=== PATIENT | male | born 1945 | race Caucasian/White ===

== ENCOUNTER 2020-05-08 10:54 | Emergency (ER) | payer MEDICARE, SELFPAY ==
[2020-05-08 11:04] VITALS: BP 131/82; PULSE 96; RESP 20; TEMP 36.7; O2SAT 95
--- NOTE | 2020-05-08 11:09 | ED.LOWEXIN ---
HPI - Extremity Injury (Lower) General Chief Complaint: Skin/Abscess/Foreign Body Stated Complaint: Lower extremity injury Time Seen by Provider: 05/08/20 11:09 Source: patient and RN notes reviewed History of Present Illness HPI Narrative: Patient is a 75-year-old male who presents the urgent care with complaints of a blister underneath the left great toe. Patient states that he stubbed the toe on causing a split in the left great toenail and a blister on the bottom of the toe. Patient states he is been lathering Neosporin but thinks he needs a skin cut off . Patient states he has a difficult time getting to the toe but has been keeping it clean. No other acute complaints. No acute distress noted. Patient aware of the plan of care. Related Data Home Medications Medication Instructions Recorded Confirmed ascorbic acid (vitamin C) 1,000 mg 1 gm PO DAILY 10/07/19 tablet aspirin 81 mg tablet,delayed 81 mg PO DAILY 10/07/19 release calcium carbonate 600 mg calcium 600 mg PO DAILY 10/07/19 (1,500 mg) tablet coenzyme Q10 100 mg capsule 100 mg PO DAILY 10/07/19 glucosamine HCl 1,500 mg tablet 4,500 mg PO DAILY tablet 10/07/19 multivitamin 1 tablet PO DAILY 10/07/19 omega-3 fatty acids 1,000 mg 1,000 mg PO BID 10/07/19 capsule insulin lispro 100 unit/mL 10 unit SUB-Q .qac ml 10/08/19 10/08/19 subcutaneous half-unit pen Allergies Allergy/AdvReac Type Severity Reaction Status Date / Time No Known Drug Allergies Allergy Unknown X Verified 05/08/20 11:28 Review of Systems Review of Systems: Narrative: CONSTITUTIONAL: Denies fever, chills, or sweats. EYES: Denies visual changes, redness, or discharge. ENT: Denies rhinorrhea, congestion, sore throat, or otalgia. CARDIOVASCULAR: Denies chest pain, palpitations, or edema. RESPIRATORY: Denies cough or dyspnea. GASTROINTESTINAL: Denies abdominal pain, nausea, vomiting, or diarrhea. GENITOURINARY: Denies dysuria or hematuria. SKIN: Reports of a blister to the left great toe MUSCULOSKELETAL: Denies back pain, joint pain, or myalgia. NEUROLOGIC: Denies headache, numbness, or weakness. All other systems reviewed are negative, except as documented in HPI. [facility] Past Medical History Medical History (Updated 05/08/20 @ 11:16 by HEATHER Lieberman) Type 2 diabetes mellitus with hyperglycemia Surgical History Surgical History (System 01/21/20 @ 11:05 by Blanca Perez) History of cholecystectomy History of parathyroidectomy Status post prostatectomy Social History Social History (Updated 02/13/20 @ 08:04 by Kayla Soto) Smoking status: Never smoker Second hand tobacco smoke exposure: No Alcohol intake: never Substance use: never Substance use type: does not use Gender identity (if verbalized by the patient): Male Comments At the time of my signature, I reviewed and agree with the nursing past medical, surgical, social, and family history. There is no relevant family history pertinent to the patient complaint. Exam Narrative: Exam Narrative: GENERAL: This is a well-nourished, well-developed patient, in no apparent distress. HEAD: normocephalic, atraumatic. EYES: PERRL. Sclera clear/white. Vision is grossly intact. EARS: External ears normal NOSE: External nose normal with no obvious nasal discharge, nares without redness, no rhinorrhea. THROAT: Mucous membranes moist NECK: Neck supple SKIN: 1 cm open blister noted to the bottom of the left great toe without surrounding erythema, left great toenail split at the tip without involving the nailbed NEURO: awake, alert, and oriented to person, place and time. There were no obvious focal neurologic abnormalities. EXTREMITIES: Left great toe without erythema, edema or ecchymosis. Positive strong left pedal pulse with capillary refill less than 2 seconds. Course Vital Signs Vital signs: Vital Signs Temperature 98.0 F 05/08/20 11:04 Pulse Rate 96 05/08/20 11:04
== END 2020-05-08 11:18 | disposition home or self-care (01) ==
PROVIDERS: Emergency Provider Nurse Practitioner Family; PCP Family Medicine
DX: S90.422A Blister (nonthermal), left great toe, initial encounter (principal); W22.8XXA Striking against or struck by other objects, initial encounter; E11.9 Type 2 diabetes mellitus without complications; Z90.79 Acquired absence of other genital organ(s); Z90.89 Acquired absence of other organs
CPT/HCPCS: 99213; G0463